=== PATIENT | female | born 1965 | race Two or more races ===

== ENCOUNTER 2024-08-28 11:06 | Day surgery (SDC) | payer MEDICARE, MEDICAID, SELFPAY ==
[2024-08-24 14:11] VITALS: BMI 36.8
--- NOTE | 2024-08-27 10:11 | P.CONAN_ITS ---
Documented by User: Divina Arevalo NP 08/27/24 10:44 HPI - Anesthesia Eval Consult details Narrative: 59yo F for Upper Endoscopy Eliquis for afib Suboxone daily s/p right mastectomy PMFSH Past Medical History Medical History Breast cancer, right breast SVT (supraventricular tachycardia) PAF (paroxysmal atrial fibrillation) Neuropathy IBS (irritable bowel syndrome) Cellulitis Lymphedema GERD (gastroesophageal reflux disease) Surgical History Surgical History Hx laparoscopic cholecystectomy Hx of right mastectomy Hx of laparoscopy History of esophagogastroduodenoscopy (EGD) H/O colonoscopy Social History Social History Patient Tobacco Use Status: Former Tobacco user Tobacco use type: Cigarette Use of substances other than those prescribed or required for medical reasons: No Have you been hit, kicked, punched, or otherwise hurt by someone within the past year? If so, by whom?: No Are you DNR?: No Advance Directives: No Advance Directives Information Provided: Yes Recently lost weight without trying: No Nutrition Risks: No Nutritional Risk Meds Allergies Allergy/AdvReac Type Severity Reaction Status Date / Time amoxicillin [From Augmentin] Allergy Unknown Unknown Verified 08/24/24 13:47 bee pollen [bee stings] Allergy Unknown Unknown Verified 08/24/24 13:47 ciprofloxacin [From Cipro] Allergy Unknown Unknown Verified 08/24/24 13:47 clavulanic acid Allergy Unknown Unknown Verified 08/24/24 13:47 [From Augmentin] codeine Allergy Unknown Unknown Verified 08/24/24 13:47 levofloxacin [From Levaquin] Allergy Unknown Unknown Verified 08/24/24 13:47 raspberry Allergy Unknown Unknown Verified 08/24/24 13:47 strawberry Allergy Unknown Unknown Verified 08/24/24 13:47 Home Medications ?Medication ?Instructions ?Recorded ?Confirmed ?Last Taken ?Type albuterol sulfate 90 mcg/actuation 1 puff inhalation QID PRN wheezing 08/24/24 08/24/24 Unknown History aerosol inhaler apixaban 5 mg tablet (Eliquis) 5 mg PO BID 08/24/24 08/24/24 08/25/24 History atorvastatin 20 mg tablet 20 mg PO DAILY 08/24/24 08/24/24 Unknown History buprenorphine 2 mg-naloxone 0.5 mg tab sublingual 08/24/24 Unknown History sublingual tablet gabapentin 400 mg capsule 800 mg PO TID 08/24/24 08/24/24 08/28/24 History letrozole 2.5 mg tablet 2.5 mg PO DAILY 08/24/24 08/24/24 Unknown History metoprolol succinate 25 mg 25 mg PO DAILY 08/24/24 08/24/24 08/28/24 History tablet,extended release 24 hr omeprazole 40 mg capsule,delayed 40 mg PO Q OTHER DAY 08/24/24 08/24/24 08/28/24 History release ondansetron 4 mg disintegrating 4 mg PO Q8H PRN nausea/vomiting 08/24/24 08/24/24 Unknown History tablet Exam Height,Weight and Vital Signs: Height 5 ft 6 in Weight 103.419 kg Pertinent Lab Results Pertinent Lab Results: CBC and BMP 07/2024 from outside facility WNL Narrative Narrative: EKG 06/2024 [id number] Ventricular Rate: 106 BPM Atrial Rate: 106 BPM P-R Interval: 152 ms QRS Duration: 68 ms Q-T Interval: 352 ms QTC Calculation(Bazett): 467 ms P [place]: 54 degrees R [place]: 46 degrees T [place]: 45 degrees Sinus tachycardia with Premature atrial complexes Otherwise normal ECG When compared with ECG of 30-JAN-2024 08:59, Premature atrial complexes are now Present Confirmed by DEBBIE KOCH MD ([id number]) on 06/28/2024 8:52:07 PM Assessment and Plan Assessment Anesthesia Assessment: Chart Reviewed Documented by User: Jesus Manuel Arnold MD 08/28/24 11:23 [facility] Past Medical History Medical History Breast cancer, right breast SVT (supraventricular tachycardia) PAF (paroxysmal atrial fibrillation) Neuropathy IBS (irritable bowel syndrome) Cellulitis Lymphedema GERD (gastroesophageal reflux disease) Family History Family history of problems with anesthesia: No Surgical History Surgical History Hx laparoscopic cholecystectomy Hx of right mastectomy Hx of laparoscopy History of esophagogastroduodenoscopy (EGD) H/O colonoscopy History of Problems with Anesthesia: No Social History Social History Patient Tobacco Use Status: Former Tobacco user Tobacco use type: Cigarette Use of substances other than those prescribed or required for medical reasons: No Have you been hit, kicked, punched, or otherwise hurt by someone within the past year? If so, by whom?: No Are you DNR?: No Advance Directives: No Advance Directives Information Provided: Yes Recently lost weight without trying: No Nutrition Risks: No Nutritional Risk Meds Allergies Allergy/AdvReac Type Severity Reaction Status Date / Time amoxicillin [From Augmentin] Allergy Unknown Unknown Verified 08/24/24 13:47 bee pollen [bee stings] Allergy Unknown Unknown Verified 08/24/24 13:47 ciprofloxacin [From Cipro] Allergy Unknown Unknown Verified 08/24/24 13:47 clavulanic acid Allergy Unknown Unknown Verified 08/24/24 13:47 [From Augmentin] codeine Allergy Unknown Unknown Verified 08/24/24 13:47 levofloxacin [From Levaquin] Allergy Unknown Unknown Verified 08/24/24 13:47 raspberry Allergy Unknown Unknown Verified 08/24/24 13:47 strawberry Allergy Unknown Unknown Verified 08/24/24 13:47 Home Medications ?Medication ?Instructions ?Recorded ?Confirmed ?Last Taken ?Type albuterol sulfate 90 mcg/actuation 1 puff inhalation QID PRN wheezing 08/24/24 08/24/24 Unknown History aerosol inhaler apixaban 5 mg tablet (Eliquis) 5 mg PO BID 08/24/24 08/24/24 08/25/24 History atorvastatin 20 mg tablet 20 mg PO DAILY 08/24/24 08/24/24 Unknown History buprenorphine 2 mg-naloxone 0.5 mg tab sublingual 08/24/24 Unknown History sublingual tablet gabapentin 400 mg capsule 800 mg PO TID 08/24/24 08/24/24 08/28/24 History letrozole 2.5 mg tablet 2.5 mg PO DAILY 08/24/24 08/24/24 Unknown History metoprolol succinate 25 mg 25 mg PO DAILY 08/24/24 08/24/24 08/28/24 History tablet,extended release 24 hr omeprazole 40 mg capsule,delayed 40 mg PO Q OTHER DAY 08/24/24 08/24/24 08/28/24 History release ondansetron 4 mg disintegrating 4 mg PO Q8H PRN nausea/vomiting 08/24/24 08/24/24 Unknown History tablet Exam Airway Mallampati Class: II TM Dist: >3cm Loose/Missing/Broken Teeth: Yes Assessment and Plan Assessment Anesthesia Assessment: Anesthesia Plan Discussed Final Anesthetic Review Family History of Problems with Anesthesia: No History of Problems with Anesthesia: No NPO: Yes ASA Class: III Final Preanesthetic Review: No Changes in Pt Med Stat, Meds/Allgs Chart Reviewed, Consent Obtained/Reviewed and Anes Risks/Benef Reviewed Patient Risk: Intermediate Procedure Risk: Low Anesthetic Plan Anesthetic Plan: MAC: Disposition: Standard PACU
[2024-08-28 11:10] VITALS: BP 161/101; PULSE 101; RESP 20; TEMP 36.9; O2SAT 97
--- NOTE | 2024-08-28 11:20 | MHC.SHP ---
Pre-Procedural Eval Section A - 24 Hr Update-Section A only Date of Service: 08/28/24 The patient is an INPATIENT: No Changes since office visit: No Cold of Flu in the past 2 weeks, No New Medical Problems, No Changes in Medication and No Patient answered all questions The patient has been examined within 24 hours of the surgical procedure. The History & Physical has been completed within 30 days and I have reviewed it.: Yes Section B - Complete if H&P > 30 days Chief Complaint: Gastric intestinal metaplasia, unspecified Allergies: Allergies Allergy/AdvReac Type Severity Reaction Status Date / Time amoxicillin [From Augmentin] Allergy Unknown Unknown Verified 08/24/24 13:47 bee pollen [bee stings] Allergy Unknown Unknown Verified 08/24/24 13:47 ciprofloxacin [From Cipro] Allergy Unknown Unknown Verified 08/24/24 13:47 clavulanic acid Allergy Unknown Unknown Verified 08/24/24 13:47 [From Augmentin] codeine Allergy Unknown Unknown Verified 08/24/24 13:47 levofloxacin [From Levaquin] Allergy Unknown Unknown Verified 08/24/24 13:47 raspberry Allergy Unknown Unknown Verified 08/24/24 13:47 strawberry Allergy Unknown Unknown Verified 08/24/24 13:47 Plan I have reviewed the history and physical and performed a pertinent physical examination on my patient. No changes have occurred unless specified. Time Spent With Patient Time: Total time managing care of this patient today ____ minutes.
--- NOTE | 2024-08-28 11:21 | PC.NURSE ---
pt has lymphedema to right arm normal per pt
[2024-08-28] MEDS: Lactated Ringers 1,000 ML 100 ML IVCONT (11:28)
[2024-08-28 11:52] VITALS: BP 113/73; PULSE 97; RESP 16; TEMP 36.1; O2SAT 97
[2024-08-28 12:07] VITALS: BP 122/83; PULSE 89; RESP 16; O2SAT 94
--- NOTE | 2024-08-28 12:18 | OP_ITS ---
DATE OF SERVICE: 08/28/2024 SURGEON: Blake Ying MD INDICATIONS: Gastric intestinal metaplasia. PREOPERATIVE DIAGNOSIS: POSTOPERATIVE DIAGNOSIS: PROCEDURE PERFORMED: Upper endoscopy with biopsy. ESTIMATED BLOOD LOSS: COMPLICATIONS: ANESTHESIA: Monitored anesthesia care. ASSISTANTS: SPECIMENS: DESCRIPTION OF PROCEDURE: A history and physical was performed. The risks and benefits of the procedure were explained to the patient and informed consent was obtained. The patient was placed in the left lateral decubitus position. The Olympus video gastroscope was introduced into the esophagus, stomach, and duodenum. Examination was performed and the scope was removed. She tolerated the procedure well and was returned to recovery area in stable condition. FINDINGS: Esophagus: The esophagus was normal. There was no esophagitis. Stomach: The stomach showed no evidence of masses or ulcers. There were several benign-appearing polyps in the body and fundus consistent with fundic gland polyps. There was no evidence of malignancy. Biopsies were obtained from the stomach according to protocol for gastric intestinal metaplasia. Duodenum: The bulb and 2nd portion were normal. IMPRESSION: Gastric intestinal metaplasia. RECOMMENDATION: Follow up the biopsy results. MD AMMY Anderson/NICK / [id number]
[2024-08-28 12:23] VITALS: BP 112/73; PULSE 88; RESP 18; TEMP 36.5; O2SAT 95
== END 2024-08-28 14:19 | disposition home or self-care (01) ==
PROVIDERS: Visit Provider Internal Medicine Gastroenterology
PROC: 0DJ08ZZ Inspection of Upper Intestinal Tract, Via Natural or Artificial Opening Endoscopic (ICD-10-PCS; CPT 43235; principal; 2024-08-28 12:20)
DX: K31.7 Polyp of stomach and duodenum (principal); K31.A0 Gastric intestinal metaplasia, unspecified; K21.9 Gastro-esophageal reflux disease without esophagitis; Z90.49 Acquired absence of other specified parts of digestive tract; I48.0 Paroxysmal atrial fibrillation; Z79.01 Long term (current) use of anticoagulants
CPT/HCPCS: 43239; 88305; 88313; 88342; J2003; J2704